=== PATIENT | female | born 1995 | race Caucasian/White ===

== ENCOUNTER → 2018-07-05 | Outpatient (CLI) | payer MEDICAID ==
[~2018-07-05] MED LIST: IBUP-1222 PO; OXYC-302 PO
== END | disposition home or self-care (01) ==
LOC: RAD 08:30
PROVIDERS: ATTEND Surgery
DX: Z01.818 Encounter for other preprocedural examination (principal); K22.8 Other specified diseases of esophagus
CPT/HCPCS: 74241